=== PATIENT | male | born 1995 | race Caucasian/White ===

== ENCOUNTER 2017-07-16 16:34 | Emergency (ER) | payer MEDICAID, OTHER ==
[~2017-07-16] VITALS: Wt 78.0 kg
[2017-07-16] MEDS ORDERED: KETOROLAC 60 MG INJ IM STA (16:50)
[2017-07-16] MEDS ORDERED: CYCL-319 PO (16:51)
[2017-07-16] MEDS ORDERED: IBUP-1542 PO (16:51)
--- NOTE | 2017-07-16 16:55 | ERD ---
ER Documentation Chief Complaint Chief Complaint LOWER BACK PAIN X 1 WEEK HPI Patient is a 22-year-old homeless male who is here complaining of low back pain that he has had for 3 months. He denies any trauma. He denies any urinary symptoms. He denies any bowel or bladder incontinence. He has not taken any medications. He is ambulatory. ROS All systems reviewed and are negative except as per history of present illness. Medications Home Meds Active Scripts Ibuprofen* (Ibuprofen*) 600 Mg Tablet, 600 MG PO Q6, #30 TAB Prov:LATONIA MASTERSON PA-C 07/16/17 Cyclobenzaprine Hcl* (Cyclobenzaprine Hcl*) 10 Mg Tablet, 10 MG PO TID, #15 TAB Prov:LATONIA MASTERSON PA-C 07/16/17 PMhx/Soc Medical and Surgical Hx: pt denies Medical Hx, pt denies Surgical Hx Hx Alcohol Use: No Hx Substance Use: No Smoking Status: Never smoker FmHx Family History: No diabetes Physical Exam Vitals Vital Signs Date Time Temp Pulse Resp B/P Pulse Ox O2 Delivery O2 Flow Rate FiO2 07/16/17 16:36 98.1 78 18 132/71 99 Physical Exam INITIAL VITAL SIGNS: Reviewed by me GENERAL: Awake, alert and oriented x 4, well appearing, nontoxic, speaking in full sentences. No acute distress HEAD: Atraumatic NECK: Supple. No masses. Full range of motion. No meningismus. No midline tenderness. RESPIRATORY: Clear to auscultation bilaterally. Symmetric chest wall rise. No wheezing or rales. No accessory muscle use. CV: Regular rate and rhythm. No murmurs, rubs, or gallops. ABDOMEN: Soft, non-distended. Nontender. Negative [place]. Negative [place] point tenderness. No CVA tenderness bilaterally. No guarding. No rebound. BACK: No midline tenderness to palpation. No step-offs. Normal gait, Results 24 hrs Current Medications Medications (Trade) Dose Ordered Sig/Len Route PRN Reason Start Time Stop Time Status Last Admin Dose Admin Ketorolac Tromethamine (Toradol) 60 mg ONCE STAT IM 07/16/17 16:50 07/16/17 16:52 DC Procedures/MDM Patients is alert, oriented, well appearing, and in no distress with normal vital signs. There is no fever, tachycardia, or tachypnea. The differential diagnosis includes but is not limited to muscle strain, ligament strain, contusion, arthritis, discogenetic disease, non-musculoskeletal, cauda equina syndrome, cord compression, abscess and others. Patient's pain is most likely musculoskeletal he was given Toradol here and discharged with ibuprofen and Flexeril. Patient counseled regarding my diagnostic impression and care plan. Prior to discharge all questions answered. Pt agrees with treatment plan and understands strict return precautions. Pt is instructed to follow up with primary care provider within 24-48 hours. Precautionary instructions provided including instructions to return to the ER if not improving or for any worsening or changing symptoms or concerns. Departure Diagnosis: Primary Impression: Back pain Condition: Stable Patient Instructions: Back Pain (Acute Or Chronic) Additional Instructions: Call your primary care doctor TOMORROW for an appointment during the next 1-2 days.See the doctor sooner or return here if your condition worsens before your appointment time. LATONIA MASTERSON PA-C Jul 16, 2017 16:55
[2017-07-17] MEDS ORDERED: ACETAMINOPHEN 500 MG TAB ONE (09:44)
== END 2017-07-16 18:28 | disposition home or self-care (01) ==
LOC: FTE 16:34
DX: M54.5 Low back pain (principal)
CPT/HCPCS: 96372; J1885; Z7502

== ENCOUNTER 2017-07-16 19:53 | Emergency (ER) | payer MEDICAID ==
[~2017-07-16] VITALS: Ht 167.6 cm; Wt 63.3 kg
[~2017-07-16 19:53] MED LIST: CYCL-319 PO; IBUP-1542 PO
[2017-07-16 20:00] VITALS: Ht 167.6 cm; Wt 63.3 kg
--- NOTE | 2017-07-16 22:11 | ERD ---
ER Documentation Chief Complaint Chief Complaint lower back pain x 3 months, seen earlier for same HPI This is a 22-year-old male with a history of homelessness and polysubstance abuse who is presenting for the second time today with concerns of his living situation but also describing suicidal ideations. Patient initially presented with reported back pain. His back pain was found to be benign and he was told that he may follow-up as an outpatient for this. However, at that time he reported that he did not have a place to stay and was hoping for resources for shelters in the area. These were reportedly provided and the patient was discharged. The patient returned shortly after this and requested to be reevaluated for back pain. During this evaluation, the patient notes that he was unable to check out these shelters and wanted help because he did not know where to go. The patient reported to me that he was staying with family, but he is no longer staying with them. He did not want to elaborate further. When I tried to explain to him that we have already provided him the resources that we have, he started to express a desire to be admitted to a psychiatric facility and he started saying that he wanted to kill himself. The patient was unable to provide a plan for suicide. He reports that his desire to kill himself stems from not having anywhere to go. He states that he cannot sleep on the street another day. ROS All systems reviewed and are negative except as per history of present illness. Medications Home Meds Active Scripts Ibuprofen* (Ibuprofen*) 600 Mg Tablet, 600 MG PO Q6, #30 TAB Prov:LATONIA MASTERSON PA-C 07/16/17 Cyclobenzaprine Hcl* (Cyclobenzaprine Hcl*) 10 Mg Tablet, 10 MG PO TID, #15 TAB Prov:LATONIA MASTERSON PA-C 07/16/17 Allergies Allergies: Coded Allergies: No Known Drug Allergies (Verified Allergy, Unknown, 07/16/17) PMhx/Soc Medical and Surgical Hx: pt denies Medical Hx, pt denies Surgical Hx History of Surgery: No Anesthesia Reaction: No Hx Neurological Disorder: No Hx Respiratory Disorders: No Hx Cardiac Disorders: No Hx Psychiatric Problems: No Hx Miscellaneous Medical Probl: No Hx Alcohol Use: No Hx Substance Use: No Hx Tobacco Use: No Smoking Status: Never smoker Physical Exam Vitals Vital Signs Date Time Temp Pulse Resp B/P Pulse Ox O2 Delivery O2 Flow Rate FiO2 07/17/17 00:21 98.5 72 20 125/78 100 07/16/17 20:00 96.8 86 20 130/81 100 Physical Exam Const: No apparent distress, well-developed, well-nourished Head: Atraumatic Eyes: Normal Conjunctiva. Extraocular movements intact. ENT: Normal External Ears, Nose and Mouth. Neck: Full range of motion. ~ No meningismus. Resp: Clear to auscultation bilaterally Cardio: Regular rate and rhythm, no murmurs Abd: Soft, non tender, non distended. Normal bowel sounds Skin: No petechiae or rashes Back: No midline or flank tenderness Ext: No cyanosis, or edema Neur: Awake and alert, oriented 4. Cranial nerves intact. No facial droop. Normal strength and sensation in all extremities. Coordination with finger to nose normal. Psych: Emotional lability, agitated Result Diagram: 07/16/17213607/16/172136 Results 24 hrs Laboratory Tests Test 07/16/17 21:37 07/16/17 21:50 White Blood Count 5.410^3/ul Red Blood Count 3.9310^6/ul Hemoglobin 11.4g/dl Hematocrit 35.1% Mean Corpuscular Volume 89.3fl Mean Corpuscular Hemoglobin 29.0pg Mean Corpuscular Hemoglobin Concent 32.5g/dl Red Cell Distribution Width 12.6% Platelet Count 54142^3/UL Mean Platelet Volume 9.0fl Neutrophils % 49.5% Lymphocytes % 38.9% Monocytes % 9.2% Eosinophils % 1.5% Basophils % 0.7% Nucleated Red Blood Cells % 0.0/100WBC Neutrophils # 2.710^3/ul Lymphocytes # 2.110^3/ul Monocytes # 0.510^3/ul Eosinophils # 0.110^3/ul Basophils # 0.010^3/ul Nucleated Red Blood Cells # 0.010^3/ul Sodium Level 141mmol/L Potassium Level 3.7mmol/L Chloride Level 104mmol/L Carbon Dioxide Level 30mmol/L Anion Gap 11 Blood Urea Nitrogen 10mg/dl Creatinine 0.96mg/dl Glucose Level 79mg/dl Calcium Level 8.5mg/dl Total Bilirubin 0.1mg/dl Direct Bilirubin 0.00mg/dl Indirect Bilirubin 0.1mg/dl Aspartate Amino Transf (AST/SGOT) 22IU/L Alanine Aminotransferase (ALT/SGPT) 29IU/L Alkaline Phosphatase 70IU/L Total Protein 6.0g/dl Albumin 3.3g/dl Globulin 2.70g/dl Albumin/Globulin Ratio 1.22 Salicylates Level < 1.0mg/dl Acetaminophen Level < 10.0ug/ml Ethyl Alcohol Level < 10.0mg/dl Urine Color YELLOW Urine Clarity CLOUDY Urine pH 5.0 Urine Specific [place] 1.027 Urine Ketones NEGATIVEmg/dL Urine Nitrite NEGATIVEmg/dL Urine Bilirubin NEGATIVEmg/dL Urine Urobilinogen 1+mg/dL Urine Leukocyte Esterase NEGATIVELeu/ul Urine Microscopic RBC 2/HPF Urine Microscopic WBC 6/HPF Urine Mucus MODERATE/HPF Urine Hemoglobin NEGATIVEmg/dL Urine Glucose NEGATIVEmg/dL Urine Total Protein 1+mg/dl Urine Opiates Screen Negative Urine Barbiturates Negative Urine Amphetamines Screen Positive Urine Benzodiazepines Screen Negative Urine Cocaine Screen Negative Urine Cannabinoids Negative Procedures/MDM MDM The patient's presentation warrants further investigation. The patient will be worked up for his reported suicidal ideations. The patient is agitated and emotionally labile. It is unclear if he is on any substances at this time, but this will be evaluated for. I am also concerned of a secondary gain in this patient as he is actively seeking for a place to sleep. However, the patient does endorse suicidal ideations and this needs to be taken seriously. As long as the patient is medically cleared, the tele-psychiatrist will evaluate the patient for need for admission to a psychiatric facility. LABS The patient's blood work was obtained and reviewed. The patient's CBC shows no leukocytosis or left shift. The patient is afebrile and does not appear systemically ill. I do not suspect a systemic infection. The patient is mildly anemic, but this does not require emergent treatment. The patient's platelet count is unremarkable. The patient's CMP shows no signs of metabolic or electrolyte abnormality. The patient has normal renal and hepatic function testing. The patient's urinalysis shows no signs of hematuria. There is some evidence of white cells, but no nitrites or bacteria. I have low suspicion for urinary tract infection and I do not intend to treat at this time. I do not feel that urine culture is necessary. The patient's UDS is positive for methamphetamines. TREATMENT/DISPOSITION The patient is medically clear from my standpoint. Tele-psychiatry evaluated the patient felt that the patient required inpatient admission to a psychiatric facility. The patient was reportedly quite agitated and tangential with flight of ideas during the tele-psychiatry evaluation. When I spoke to the psychiatrist, she recommended that not only the patient be placed on a hold but that he also received sedating medicines of Benadryl, Haldol and Ativan. After my discussion with the psychiatrist, I went back to speak to the patient and he was actually quite calm and collected. I do not feel that he requires chemical restraint at this time. This will need to be serially evaluated in the emergency department. The patient will be placed on a 5150 hold. The bed search is pending. The patient's blood pressure was elevated at greater than 120/80 while in the emergency department. The patient was otherwise stable with no evidence of hypertensive urgency or emergency. The patient will require reevaluation of his blood pressure in 2-3 days, but this may be completed by a primary care physician as an outpatient. He does not require admission for blood pressure control. Departure Diagnosis: Primary Impression: Suicidal ideation Additional Impression: Homeless Condition: NITA Geller MD Jul 16, 2017 22:11
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
[2017-07-17] MEDS ORDERED: ACETAMINOPHEN 500 MG TAB PO STA (08:38)
[2017-07-17 09:40] VITALS: BP 122/78; PULSE 74; RESP 18; TEMP 97.7
== END 2017-07-17 10:04 ==
LOC: FTE 19:53 → E/R 07-17 10:04
DX: R45.851 Suicidal ideations (principal); Z59.0 Homelessness
CPT/HCPCS: 80053; 80306; 80307; 81001; 85025; Z7502